=== PATIENT | male | born 1980 | race Caucasian/White ===

== ENCOUNTER 2020-01-13 12:41 | Emergency (ER) | payer OTHER ==
[2020-01-13] MEDS ORDERED: HYDROmorphone 0.5 MG/0.5 ML Syringe IVPUSH ONE (12:49)
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
[2020-01-13] MEDS ORDERED: Iopamidol 612 MG/ML 150 ML Bottle IV ONE (13:19)
[2020-01-13] MEDS ORDERED: Bacitracin Oint 1 GM U/D Packet TOP ONE (13:54)
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
--- NOTE | 2020-01-13 14:10 | CR ---
Humerus Rt CLINICAL HISTORY: Injury FINDINGS: There is no acute fracture within the humerus. IMPRESSION: Negative right humerus.
[2020-01-13] MEDS ORDERED: Ketorolac 30 MG/ML SDV IVPUSH ONE (14:19)
== END 2020-01-13 14:57 | disposition home or self-care (01) ==
LOC: JP.ED 12:41
DX: S32.029A Unspecified fracture of second lumbar vertebra, initial encounter for closed fracture (principal); S32.039A Unspecified fracture of third lumbar vertebra, initial encounter for closed fracture; S32.049A Unspecified fracture of fourth lumbar vertebra, initial encounter for closed fracture; S01.511A Laceration without foreign body of lip, initial encounter; S40.021A Contusion of right upper arm, initial encounter; Z88.1 Allergy status to other antibiotic agents; Z88.2 Allergy status to sulfonamides; W22.8XXA Striking against or struck by other objects, initial encounter
CPT/HCPCS: 12011; 36415; 71260; 73060; 74177; 80048; 85025; 96374; 96375; 99284; J1170; J1885; J2001; J7050; Q9967